=== PATIENT | female | born 1965 | race Caucasian/White ===

== ENCOUNTER 2019-07-01 02:57 | Emergency (ER) | payer BC, OTHER ==
[2019-07-01 03:52] LABS: Basophils % (A) 0 %; Eosinophils # (A) 0.2 k/uL (0-0.7); Eosinophils % (A) 4 %; HCT 43.3 % (34.0-46.0); HGB 14.5 gm/dL (11.4-16.0); Lymphocytes % (A) 35 %; MCH 30.7 pg (25.0-35.0); MCHC 33.6 g/dL (31.0-37.0); MCV 91.2 fL (80.0-100.0); Mean Platelet Volume 7.8; Monocytes # (A) 0.4 k/uL (0-1.0); Monocytes % (A) 6 %; Neutrophils % (A) 53 %; Platelet Count 250 k/uL (150-450); RBC 4.75 m/uL (3.80-5.40); WBC 5.7 k/uL (3.8-10.6)
--- NOTE | 2019-07-01 03:54 | XR ---
EXAMINATION TYPE: XR chest 2V DATE OF EXAM: 07/01/2019 COMPARISON: NONE HISTORY: Chest pain TECHNIQUE: 2 views FINDINGS: Heart and mediastinum are normal. Lungs are clear. Diaphragm is normal. There are chest laura ds. There is cervical spine fusion surgery. IMPRESSION: Normal chest
[2019-07-01 03:56] LABS: INR 0.9 (<1.2); Partial Thromboplastin Time 22.3 sec (22.0-30.0); Prothrombin Time 9.6 sec (9.0-12.0)
--- NOTE | 2019-07-01 04:15 | ED ---
Chest Pain HPI - General Chief Complaint: Chest Pain Stated Complaint: Chest Pain Time Seen by Provider: 07/01/19 03:35 Source: patient Mode of arrival: ambulatory Limitations: no limitations - History of Present Illness Initial Comments: Lila is a 53-year-old female who does not follow with a primary care physician who presents the ER today for evaluation of chest pain that radiates to her back. Patient reports that for the past couple of days she's been having intermittent chest pain and palpitations, she woke tonight with chest pain radiating to her back. Patient has no known history of hypertension, hyperlipidemia or diabetes. She states that about 8 years ago she was worked up for chest pain in the hospital and was discharged home. Father of a NC at the age of 88. - Related Data Allergies Allergy/AdvReac Type Severity Reaction Status Date / Time No Known Allergies Allergy Verified 07/01/19 03:02 Review of Systems ROS Statement: Those systems with pertinent positive or pertinent negative responses have been documented in the HPI. ROS Other: All systems not noted in ROS Statement are negative. EKG Findings - EKG Comments: EKG Findings:: EKG was obtained due to complaint of chest pain, EKG was obtained at 3:10 AM, rate is 82 over the sinuses normal axis, normal intervals, MO 144, QRS 84, QTC is 450 there are no acute ST elevations, mild ST depressions laterally no evidence of acute infarction. Past Medical History Past Medical History: No Reported History History of Any Multi-Drug Resistant Organisms: None Reported Additional Past Surgical History / Comment(s): neck surgery, Past Psychological History: No Psychological Hx Reported Smoking Status: Never smoker Past Alcohol Use History: Occasional Past Drug Use History: None Reported General Exam - General Exam Comments Initial Comments: Physical Exam GENERAL: Patient is well-developed and well-nourished. Patient is nontoxic and well- hydrated and is in no distress. HENT: Normocephalic, Atraumatic. EYES: PERRL, EOMI PULMONARY: Unlabored respirations. No audible rales rhonchi or wheezing was noted. CARDIOVASCULAR: There is a regular rate and rhythm without any murmurs gallops or rubs. ABDOMEN: Soft and nontender with normal bowel sounds. SKIN: Skin is clear with no lesions or rashes and otherwise unremarkable. : Deferred NEUROLOGIC: Patient is alert and oriented x3. Moving all extremities spontaneously MUSCULOSKELETAL: Normal extremities with adequate strength and full range of motion. No lower extremity swelling or edema. No calf tenderness. PSYCHIATRIC: Normal psychiatric evaluation. Limitations: no limitations Course Vital Signs 07/01/19 07/01/19 03:00 04:49 Temperature 97.6 F Pulse Rate 93 80 Respiratory 18 18 Rate Blood Pressure 128/84 115/85 O2 Sat by Pulse 100 98 Oximetry Chest Pain MDM - MDM She was seen and evaluated history was obtained from patient Pleasant 53-year-old female with no cardiac risk factors his presenting with what she describes as pain radiating from her chest to her back. Unlike anything she has periods before. EKG was nonischemic Labs were unremarkable Patient reported complete resolution of pain after single dose of morphine CT angiography was obtained and revealed normal vasculature, no PE, evidence of gallstone. ultrasound was ordered to evaluate the gallbladder and was obtained does reveal gallstones without signs of acute Morrison lithiasis Patient made asymptomatic throughout the remainder of her ER stay. Results were discussed the patient is comfortable with plan for discharge home and outpatient follow-up. Dietary modifications for symptomatic cholelithiasis were discussed. Referral to surgery was provided upon discharge. All questions pertaining care were answered return parameters discussed patient discharged home in stable condition. Disposition Clinical Impression: Cholelithiases Disposition: HOME SELF-CARE Condition: Stable Instructions (If sedation given, give patient instructions): Gallstones (ED) Is patient prescribed a controlled substance at d/c from ED?: No Referrals: Barry Stanley DO [Primary Care Provider] - 1-2 days aMyito Herr MD [Medical Doctor] - 1-2 days Katie Lin MD [STAFF PHYSICIAN] - 1-2 days
[2019-07-01] MEDS ORDERED: NITROGLYCERIN SL TABS 0.4 MG TAB SUBLINGUAL PRN (04:16)
[2019-07-01] MEDS ORDERED: ASPIRIN 81 MG PO STA (04:16)
[2019-07-01] MEDS ORDERED: MORPHINE SULFATE 4 MG/ML SYRINGE IVP STA (04:16)
[2019-07-01 04:22] LABS: Albumin 4.6 g/dL (3.5-5.0); Calcium 9.9 mg/dL (8.4-10.2); Magnesium 2.2 mg/dL (1.6-2.3); Potassium 3.6 mmol/L (3.5-5.1); Total Bilirubin 0.5 mg/dL (0.2-1.3); Total Protein 7.9 g/dL (6.3-8.2)
--- NOTE | 2019-07-01 05:51 | CT ---
EXAMINATION TYPE: CT angio thor/abd pel aorta DATE OF EXAM: 07/01/2019 COMPARISON: None HISTORY: Chest pain CT DLP: 1177 mGycm Automated exposure control for dose reduction was used. CONTRAST: Performed with IV Contrast, patient injected with 100 mL of Isovue 370. Images were obtained from the thoracic inlet to the floor the pelvis without and with IV contrast. Th ere are 3-D post processed images. The lungs are clear of consolidation. There is no pleural effusion or pneumothorax. Thoracic aorta is intact. There is no aneurysm or dissection. There is normal contrast opacification of the pulmonary arteries. I see no filling defects. Liver and spleen appear normal. Stomach is intact. There is no evidence of pancreatic mass. There is increased density in the dependent gallbladder that could be a large gallstone that measures 2.5 cm. Gallbladder is distended. There is no adrenal mass. Kidneys show satisfactory contrast opacification. There is no hydronephrosis. There is no retroperitoneal adenopathy. Appendix appears normal. There is normal contrast opacification of the iliac and femoral arteries. The abdominal aorta shows n o aneurysm or dissection. There is patency of the renal arteries, celiac artery and superior mesenter ic artery. There is no evidence of abdominal aortic aneurysm or dissection. There is no evidence of h emodynamic stenosis. Thoracic and lumbar spine are intact. Bony pelvis is intact. IMPRESSION: No evidence of pulmonary embolism. No evidence of aortic aneurysm or dissection. No evidence of hemod ynamic stenosis. Possible gallstone.
--- NOTE | 2019-07-01 07:23 | US ---
EXAMINATION TYPE: US gallbladder DATE OF EXAM: 07/01/2019 COMPARISON: NONE CLINICAL HISTORY: epigastric pain, gall stone. Possible gallstones visualized on recent CT EXAM MEASUREMENTS: Liver Length: 13.1 cm Gallbladder Wall: 0.3 cm CBD: 0.5 cm Right Kidney: 10.0 x 5.2 x 5.0 cm Pancreas: Tail obscured by overlying bowel gas Liver: appears wnl Gallbladder: multiple stones noted Evidence for sonographic Montano's sign: no CBD: wnl Right Kidney: no evidence of hydronephrosis or mass IMPRESSION: Cholelithiasis without sonographic evidence of acute cholecystitis.
[2019-07-01 08:18] VITALS: BP 104/84; PULSE 85; RESP 16; TEMP 97.8
== END 2019-07-01 08:18 | disposition home or self-care (01) ==
LOC: EC 02:57 → SUPCPDRO 02:57 → EC 08:18
DX: K80.20 Calculus of gallbladder without cholecystitis without obstruction (principal)
CPT/HCPCS: 36415; 93005; 80053; 83690; 83735; 84484; 85025; 85610; 85730; 71046; 76705; 71275; 74174; 99285; 96374; J2270; Q9967